=== PATIENT | male | born 1985 | race African-American/Black ===

== ENCOUNTER 2018-02-25 23:32 | Inpatient (IN) ==
[2018-02-25] MEDS ORDERED: HYDROmorphone 2 MG/1 ML VIAL IV STA (23:47)
[2018-02-25] MEDS ORDERED: ONDANSETRON 4 MG/2 ML VIAL IV STA (23:47)
[2018-02-25] MEDS ORDERED: SODIUM CHLORIDE 0.9% 1,000 ML IV STA (23:47)
[2018-02-25] MEDS ORDERED: PANTOPRAZOLE 40 MG VIAL IV STA (23:47)
[2018-02-26 00:15] LABS: Basophils % 0.2 % (0.0-0.8); Hematocrit 46.4 VOL% (42.0-52.0); Hemoglobin 15.8 GM/DL (14.0-18.0); Immature Granulocytes % 0.3 %; Immature Granulocytes Absolute 0.04 #; Lymphocytes # 1.3 10*3/uL (1.4-4.0); Lymphocytes % 10.6 % (21.2-54.2); Mean Corpuscular HGB Conc 34.1 GM/DL (32-36); Mean Corpuscular Hemoglobin 32 PG (27-34); Mean Corpuscular Volume 95.3 FL (87-102); Mean Platelet Volume 9.4 FL (9.6-12.0); Monocytes # 0.9 10*3/uL (0.11-0.8); Monocytes % 7.5 % (1.7-12.7); Neutrophils # 9.8 10*3/uL (1.4-7.4); Neutrophils % 81.4 % (38.7-73.9); Platelet Count 249 T/CUMM (130-400); Red Blood Count 4.87 MC/CUMM (3.8-5.5); Red Cell Distribution Width 12.7 % (9.3-17.3); White Blood Count 12.1 T/CUMM (4-12)
[2018-02-26 00:45] LABS: Albumin 4.6 G/DL (3.4-5.0); Bilirubin,Total 1.5 MG/DL (0.2-1.0); Calcium 9.3 MG/DL (8.5-10.1); Osmolality,Calculated 272.8 MOS/KG (273-304); Potassium 3.4 MMOL/L (3.5-5.1)
[2018-02-26 00:53] LABS: Apearance,Urine CLEAR (Clear); Bilirubin,Urine Negative (Negative); Blood, Urine Negative (Negative); Glucose,Urine (UA) Negative (Negative); Ketones,Urine 5 mg/dL (Negative); Mucus,Urine Occasional /LPF (Occasional); Nitrite,Urine Negative (Negative); Protein,Urine 30 MG/DL; RBC,Urine 15 /HPF (0-4); Urine Color Yellow (Yellow); Urine Specific Gravity > 1.060 (1.001-1.035); Urine Urobilinogen < 2.0 EU/DL (0.2-1.0); WBC,Urine 3 /HPF (0-6)
[2018-02-26] MEDS ORDERED: NICOTINE 21 MG/24 HR PATCH TRANSDERM PRN (01:03)
[2018-02-26] MEDS ORDERED: diphenhydrAMINE CAP 25 MG CAPSULE PO PRN (01:03)
[2018-02-26] MEDS ORDERED: MORPHINE 4 MG/1 ML VIAL IV PRN ×2 (01:03→02:19)
[2018-02-26] MEDS ORDERED: PROMETHAZINE 25 MG/1 ML VIAL IM PRN (01:03)
[2018-02-26] MEDS ORDERED: LACTULOSE 20 GM/30 ML UDCUP PO PRN (01:03)
[2018-02-26] MEDS ORDERED: ONDANSETRON 4 MG/2 ML VIAL IV PRN (01:03)
[2018-02-26 02:01] LABS: Risk Ratio 1.9; VLDL CHOLESTEROL 15.4 MG/DL
[2018-02-26 02:09] LABS: Albumin 4.4 G/DL (3.4-5.0); Bilirubin,Direct 0.35 MG/DL (0.0-0.20); Bilirubin,Indirect 1.3 MG/DL (0.0-1.0); Bilirubin,Total 1.6 MG/DL (0.2-1.0); Total Protein 9.2 G/DL (6.4-8.3)
[2018-02-26 02:15] LABS: Barbiturates Screen,Urine Negative (Negative); Benzodiazepines Screen,Urine Negative (Negative); Cannabinoid Screen,Urine Negative (Negative); Opiate Screen,Urine Positive (Negative); Phencyclidine Screen,Urine Negative (Negative)
[2018-02-26] MEDS: SODIUM CHLORIDE 0.9% 1,000 ML IV SCH ×3 (03:08→16:21)
[2018-02-26] MEDS: PIPERACILLIN/TAZOBACTAM 3,375 MG in SODIUM CHLORIDE 0.9% 100 ML IV SCH ×3 (03:08→18:25)
[2018-02-26 03:33] LABS: Calcium 8.4 MG/DL (8.5-10.1); Osmolality,Calculated 275.5 MOS/KG (273-304); Potassium 3.4 MMOL/L (3.5-5.1)
[2018-02-26 03:34] LABS: Hepatitis A Ab IgM Quant 0.14 Index; Hepatitis A Ab IgM Result Negative (Negative); Hepatitis B Core IgM Quant 0.13 Index; Hepatitis B Core IgM Result Negative (Negative); Hepatitis B Surface Ag Quant < 0.10 Index; Hepatitis B Surface Ag Result Negative (Negative); Hepatitis C Virus Ab Quant 0.08 Index; Hepatitis C Virus Ab Result Negative (Negative)
[2018-02-26 04:24] LABS: HIV Antigen/Antibody Result Nonreactive (Nonreactive)
[2018-02-26] MEDS: HYDROmorphone 2 MG/1 ML VIAL IV PRN ×4 (08:22→20:55)
[2018-02-26] MEDS: PANTOPRAZOLE 40 MG VIAL IV SCH ×2 (08:24→20:58)
[2018-02-26] MEDS: LACTATED RINGERS 1,000 ML IV SCH (16:20)
[2018-02-27] MEDS: HYDROmorphone 2 MG/1 ML VIAL IV PRN ×4 (01:13→14:17)
[2018-02-27] MEDS: LACTATED RINGERS 1,000 ML IV SCH ×5 (01:50→18:08)
[2018-02-27] MEDS: PIPERACILLIN/TAZOBACTAM 3,375 MG in SODIUM CHLORIDE 0.9% 100 ML IV SCH ×2 (01:50→10:19)
[2018-02-27 04:39] LABS: Basophils # 0.1 10*3/uL (0.0-0.2); Basophils % 0.5 % (0.0-0.8); Eosinophils # 0.1 10*3/uL (0.0-0.87); Eosinophils % 1.1 % (0.00-10.9); Hematocrit 37.1 VOL% (42.0-52.0); Hemoglobin 12.5 GM/DL (14.0-18.0); Immature Granulocytes % 0.4 %; Immature Granulocytes Absolute 0.04 #; Lymphocytes # 2.4 10*3/uL (1.4-4.0); Lymphocytes % 22.1 % (21.2-54.2); Mean Corpuscular HGB Conc 33.7 GM/DL (32-36); Mean Corpuscular Hemoglobin 33 PG (27-34); Mean Corpuscular Volume 96.6 FL (87-102); Mean Platelet Volume 9.9 FL (9.6-12.0); Monocytes % 8.7 % (1.7-12.7); Neutrophils # 7.4 10*3/uL (1.4-7.4); Neutrophils % 67.2 % (38.7-73.9); Platelet Count 186 T/CUMM (130-400); Red Blood Count 3.84 MC/CUMM (3.8-5.5); Red Cell Distribution Width 12.8 % (9.3-17.3); White Blood Count 10.9 T/CUMM (4-12)
[2018-02-27 04:51] LABS: Calcium 8.3 MG/DL (8.5-10.1); Osmolality,Calculated 272.7 MOS/KG (273-304); Potassium 3.1 MMOL/L (3.5-5.1)
[2018-02-27] MEDS: PANTOPRAZOLE 40 MG VIAL IV SCH (08:46)
[2018-02-27] MEDS ORDERED: POTASSIUM CHLORIDE 20 MEQ TABLET PO PRN (09:49)
[2018-02-27] MEDS: amLODIPine 5 MG TABLET PO SCH (12:35)
[2018-02-27] MEDS: POTASSIUM CHLORIDE 20 MEQ TABLET PO SCH ×3 (12:35→21:20)
[2018-02-27] MEDS: oxyCODONE/ACETAMINOPHEN 5-325 MG TABLET PO PRN (19:25)
[2018-02-28] MEDS ORDERED: BISACODYL 5 MG TABLET PO ONE (00:20)
[2018-02-28] MEDS ORDERED: SIMETHICONE CHEW 125 MG TABLET PO SCH (00:30)
[2018-02-28] MEDS: oxyCODONE/ACETAMINOPHEN 5-325 MG TABLET PO PRN ×2 (00:38→21:41)
[2018-02-28] MEDS ORDERED: SIMETHICONE CHEW 125 MG TABLET PO ONE (01:00)
[2018-02-28 04:28] LABS: Basophils % 0.4 % (0.0-0.8); Eosinophils # 0.2 10*3/uL (0.0-0.87); Eosinophils % 2.3 % (0.00-10.9); Hemoglobin 12.5 GM/DL (14.0-18.0); Immature Granulocytes % 0.2 %; Immature Granulocytes Absolute 0.02 #; Lymphocytes # 2.3 10*3/uL (1.4-4.0); Lymphocytes % 22.9 % (21.2-54.2); Mean Corpuscular HGB Conc 33.8 GM/DL (32-36); Mean Corpuscular Hemoglobin 32 PG (27-34); Mean Corpuscular Volume 95.9 FL (87-102); Mean Platelet Volume 10.2 FL (9.6-12.0); Monocytes % 9.6 % (1.7-12.7); Neutrophils # 6.6 10*3/uL (1.4-7.4); Neutrophils % 64.6 % (38.7-73.9); Platelet Count 198 T/CUMM (130-400); Red Blood Count 3.86 MC/CUMM (3.8-5.5); Red Cell Distribution Width 12.1 % (9.3-17.3); White Blood Count 10.2 T/CUMM (4-12)
[2018-02-28 04:50] LABS: Calcium 8.4 MG/DL (8.5-10.1); Potassium 3.8 MMOL/L (3.5-5.1)
[2018-02-28] MEDS: LACTATED RINGERS 1,000 ML IV SCH ×2 (05:04→21:40)
[2018-02-28] MEDS: PANTOPRAZOLE 40 MG TABLET PO SCH (08:26)
[2018-02-28] MEDS: amLODIPine 5 MG TABLET PO SCH (08:26)
[2018-03-01] MEDS: oxyCODONE/ACETAMINOPHEN 5-325 MG TABLET PO PRN ×2 (03:09→09:06)
[2018-03-01 05:49] LABS: Basophils % 0.5 % (0.0-0.8); Eosinophils # 0.1 10*3/uL (0.0-0.87); Eosinophils % 1.6 % (0.00-10.9); Hematocrit 39.7 VOL% (42.0-52.0); Hemoglobin 13.8 GM/DL (14.0-18.0); Immature Granulocytes % 0.3 %; Immature Granulocytes Absolute 0.03 #; Lymphocytes # 1.9 10*3/uL (1.4-4.0); Lymphocytes % 22.2 % (21.2-54.2); Mean Corpuscular HGB Conc 34.8 GM/DL (32-36); Mean Corpuscular Hemoglobin 32 PG (27-34); Mean Corpuscular Volume 92.5 FL (87-102); Mean Platelet Volume 10.5 FL (9.6-12.0); Neutrophils # 5.5 10*3/uL (1.4-7.4); Neutrophils % 63.4 % (38.7-73.9); Platelet Count 235 T/CUMM (130-400); Red Blood Count 4.29 MC/CUMM (3.8-5.5); Red Cell Distribution Width 11.4 % (9.3-17.3); White Blood Count 8.6 T/CUMM (4-12)
[2018-03-01 06:15] LABS: Calcium 8.6 MG/DL (8.5-10.1); Osmolality,Calculated 262.4 MOS/KG (273-304)
[2018-03-01] MEDS ORDERED: POTASSIUM CHLORIDE 20 MEQ TABLET PO ONE (07:22)
[2018-03-01] MEDS: amLODIPine 5 MG TABLET PO SCH (08:42)
[2018-03-01] MEDS: PANTOPRAZOLE 40 MG TABLET PO SCH (08:42)
[2018-03-01 11:13] VITALS: BP 166/96
== END 2018-03-01 11:25 | disposition home or self-care (01) | DRG 440 ==
LOC: N.ED 23:32 → N.EDINP 02-26 01:03 → SUATTDRO 02-26 01:03 → N.3E 02-26 01:27
PROVIDERS: ADMIT Internal Medicine; ATTEND Internal Medicine Cardiovascular Disease

== ENCOUNTER 2018-04-01 13:56 | Inpatient (IN) ==
[2018-04-01] MEDS ORDERED: PANTOPRAZOLE 40 MG VIAL IV STA (14:17)
[2018-04-01] MEDS ORDERED: SODIUM CHLORIDE 0.9% 1,000 ML IV STA (14:17)
[2018-04-01] MEDS ORDERED: HYDROmorphone 2 MG/1 ML VIAL IV STA ×2 (14:17→16:30)
[2018-04-01] MEDS ORDERED: ONDANSETRON 4 MG/2 ML VIAL IV STA (14:17)
[2018-04-01 14:44] LABS: Basophils # 0.1 10*3/uL (0.0-0.2); Basophils % 0.5 % (0.0-0.8); Eosinophils # 0.2 10*3/uL (0.0-0.87); Eosinophils % 1.5 % (0.00-10.9); Hematocrit 44.2 VOL% (42.0-52.0); Hemoglobin 15.2 GM/DL (14.0-18.0); Immature Granulocytes % 0.3 %; Immature Granulocytes Absolute 0.04 #; Lymphocytes # 2.7 10*3/uL (1.4-4.0); Lymphocytes % 20.1 % (21.2-54.2); Mean Corpuscular HGB Conc 34.4 GM/DL (32-36); Mean Corpuscular Hemoglobin 32 PG (27-34); Mean Corpuscular Volume 92.7 FL (87-102); Mean Platelet Volume 9.1 FL (9.6-12.0); Monocytes # 0.8 10*3/uL (0.11-0.8); Monocytes % 5.8 % (1.7-12.7); Neutrophils # 9.6 10*3/uL (1.4-7.4); Neutrophils % 71.8 % (38.7-73.9); Platelet Count 261 T/CUMM (130-400); Red Blood Count 4.77 MC/CUMM (3.8-5.5); Red Cell Distribution Width 12.4 % (9.3-17.3); White Blood Count 13.4 T/CUMM (4-12)
[2018-04-01 15:08] LABS: Alanine Aminotransferase 24 U/L (16-61); Albumin 4.6 G/DL (3.4-5.0); Alkaline Phosphatase 76 U/L (45-117); Amylase 154 U/L (25-115); Aspartate Amino Transferase 34 U/L (0-37); Blood Urea Nitrogen 11 MG/DL (7-18); Calcium 9.6 MG/DL (8.5-10.1); Glucose 133 MG/DL (74-106); Osmolality,Calculated 277.5 MOS/KG (273-304); Sodium 139 MMOL/L (136-145); Total Protein 8.5 G/DL (6.4-8.3)
[2018-04-01] MEDS ORDERED: ACETAMINOPHEN 325 MG TABLET PO PRN (15:27)
[2018-04-01] MEDS ORDERED: PROMETHAZINE 25 MG/1 ML VIAL IM PRN (15:27)
[2018-04-01] MEDS ORDERED: ONDANSETRON 4 MG/2 ML VIAL IV PRN (15:27)
[2018-04-01] MEDS ORDERED: SODIUM CHLORIDE 0.9% 2,000 ML IV STA (15:31)
[2018-04-01] MEDS ORDERED: DICYCLOMINE 10 MG CAPSULE PO PRN (15:34)
[2018-04-01] MEDS ORDERED: LORazepam 2 MG/1 ML VIAL IV PRN (15:34)
[2018-04-01] MEDS ORDERED: METHOCARBAMOL 500 MG TABLET PO PRN (15:34)
[2018-04-01 17:22] LABS: Apearance,Urine CLEAR (Clear); Bilirubin,Urine Negative (Negative); Blood, Urine Negative (Negative); Glucose,Urine (UA) Negative (Negative); Ketones,Urine Negative (Negative); Nitrite,Urine Negative (Negative); Protein,Urine Negative; RBC,Urine 1 /HPF (0-4); Urine Color Yellow (Yellow); Urine Specific Gravity > 1.060 (1.001-1.035); Urine Urobilinogen < 2.0 EU/DL (0.2-1.0); WBC,Urine 1 /HPF (0-6)
[2018-04-01 17:28] LABS: Barbiturates Screen,Urine Negative (Negative); Benzodiazepines Screen,Urine Negative (Negative); Cannabinoid Screen,Urine Negative (Negative); Opiate Screen,Urine Positive (Negative); Phencyclidine Screen,Urine Negative (Negative)
[2018-04-01] MEDS ORDERED: NICOTINE 14 MG/24 HR PATCH TRANSDERM PRN (17:55)
[2018-04-01] MEDS: chlordiazePOXIDE 25 MG CAPSULE PO SCH ×2 (18:05→21:20)
[2018-04-01] MEDS: GEMFIBROZIL 600 MG TABLET PO SCH (18:16)
[2018-04-01] MEDS: HYDROmorphone 2 MG/1 ML VIAL IV PRN ×2 (18:17→21:19)
[2018-04-01] MEDS: LACTATED RINGERS 1,000 ML IV SCH (18:18)
[2018-04-01] MEDS ORDERED: THIAMINE INJ 100 MG, FOLIC ACID INJ 1 MG, MULTIVITAMIN INJ 10 ML in SODIUM CHLORIDE 0.9... IV ONE (18:30)
[2018-04-02] MEDS: HYDROmorphone 2 MG/1 ML VIAL IV PRN ×7 (01:04→21:01)
[2018-04-02 02:45] LABS: Basophils % 0.2 % (0.0-0.8); Eosinophils # 0.1 10*3/uL (0.0-0.87); Eosinophils % 0.9 % (0.00-10.9); Hematocrit 37.5 VOL% (42.0-52.0); Hemoglobin 12.6 GM/DL (14.0-18.0); Immature Granulocytes % 0.3 %; Immature Granulocytes Absolute 0.04 #; Lymphocytes # 1.9 10*3/uL (1.4-4.0); Lymphocytes % 14.8 % (21.2-54.2); Mean Corpuscular HGB Conc 33.6 GM/DL (32-36); Mean Corpuscular Hemoglobin 32 PG (27-34); Mean Corpuscular Volume 94.5 FL (87-102); Mean Platelet Volume 9.7 FL (9.6-12.0); Monocytes % 7.8 % (1.7-12.7); Neutrophils # 9.7 10*3/uL (1.4-7.4); Platelet Count 226 T/CUMM (130-400); Red Blood Count 3.97 MC/CUMM (3.8-5.5); Red Cell Distribution Width 12.3 % (9.3-17.3); White Blood Count 12.7 T/CUMM (4-12)
[2018-04-02 03:12] LABS: Albumin 3.6 G/DL (3.4-5.0); Bilirubin,Total 2.1 MG/DL (0.2-1.0); Calcium 8.2 MG/DL (8.5-10.1); Osmolality,Calculated 275.4 MOS/KG (273-304); Potassium 3.4 MMOL/L (3.5-5.1); Risk Ratio 1.88; Thyroid Stimulating Hormone 0.712 uIU/ml (0.358-3.74); Total Protein 6.9 G/DL (6.4-8.3); VLDL CHOLESTEROL 16.8 MG/DL
[2018-04-02] MEDS: chlordiazePOXIDE 25 MG CAPSULE PO SCH ×4 (04:02→23:41)
[2018-04-02] MEDS: LACTATED RINGERS 1,000 ML IV SCH ×5 (04:22→22:33)
[2018-04-02] MEDS ORDERED: POTASSIUM CHLORIDE 20 MEQ TABLET PO ONE (07:52)
[2018-04-02] MEDS: amLODIPine 5 MG TABLET PO SCH (08:07)
[2018-04-02] MEDS: GEMFIBROZIL 600 MG TABLET PO SCH ×2 (08:07→15:57)
[2018-04-02] MEDS: PANTOPRAZOLE 40 MG VIAL IV SCH (08:12)
[2018-04-02] MEDS: PIPERACILLIN/TAZOBACTAM 3,375 MG in SODIUM CHLORIDE 0.9% 100 ML IV SCH ×2 (10:54→17:57)
[2018-04-03] MEDS: HYDROmorphone 2 MG/1 ML VIAL IV PRN ×3 (01:29→07:55)
[2018-04-03] MEDS: PIPERACILLIN/TAZOBACTAM 3,375 MG in SODIUM CHLORIDE 0.9% 100 ML IV SCH ×2 (01:31→10:40)
[2018-04-03 05:12] LABS: Basophils # 0.1 10*3/uL (0.0-0.2); Basophils % 0.5 % (0.0-0.8); Eosinophils # 0.6 10*3/uL (0.0-0.87); Hemoglobin 12.5 GM/DL (14.0-18.0); Immature Granulocytes % 0.3 %; Immature Granulocytes Absolute 0.03 #; Lymphocytes # 2.9 10*3/uL (1.4-4.0); Lymphocytes % 31.6 % (21.2-54.2); Mean Corpuscular HGB Conc 33.8 GM/DL (32-36); Mean Corpuscular Hemoglobin 32 PG (27-34); Mean Corpuscular Volume 94.1 FL (87-102); Mean Platelet Volume 9.7 FL (9.6-12.0); Monocytes # 0.7 10*3/uL (0.11-0.8); Monocytes % 8.1 % (1.7-12.7); Neutrophils # 4.9 10*3/uL (1.4-7.4); Neutrophils % 53.5 % (38.7-73.9); Platelet Count 210 T/CUMM (130-400); Red Blood Count 3.93 MC/CUMM (3.8-5.5); White Blood Count 9.1 T/CUMM (4-12)
[2018-04-03 05:29] LABS: Albumin 3.5 G/DL (3.4-5.0); Calcium 8.6 MG/DL (8.5-10.1); Osmolality,Calculated 269.8 MOS/KG (273-304); Potassium 3.2 MMOL/L (3.5-5.1); Total Protein 7.3 G/DL (6.4-8.3)
[2018-04-03 06:03] LABS: Barbiturates Screen,Urine Negative (Negative); Benzodiazepines Screen,Urine Positive (Negative); Cannabinoid Screen,Urine Negative (Negative); Opiate Screen,Urine Positive (Negative); Phencyclidine Screen,Urine Negative (Negative)
[2018-04-03] MEDS: chlordiazePOXIDE 25 MG CAPSULE PO SCH ×2 (07:57→17:50)
[2018-04-03] MEDS: LACTATED RINGERS 1,000 ML IV SCH ×2 (07:58→12:43)
[2018-04-03] MEDS: POTASSIUM CHLORIDE 20 MEQ TABLET PO SCH ×2 (07:58→12:56)
[2018-04-03] MEDS: GEMFIBROZIL 600 MG TABLET PO SCH (07:58)
[2018-04-03] MEDS ORDERED: THIAMINE 100 MG TABLET PO SCH (09:00)
[2018-04-03] MEDS: amLODIPine 5 MG TABLET PO SCH (10:43)
[2018-04-03] MEDS ORDERED: HYDROmorphone 2 MG/1 ML VIAL IV PRN (11:12)
[2018-04-03 12:41] VITALS: BP 140/87
[2018-04-03] MEDS: PANTOPRAZOLE 40 MG VIAL IV SCH (12:44)
[2018-04-03] MEDS ORDERED: POTASSIUM CHLORIDE 20 MEQ TABLET PO SCH (13:00)
== END 2018-04-03 16:05 | disposition home or self-care (01) | DRG 439 ==
LOC: N.ED 13:56 → N.EDINP 15:27 → N.4E 17:54
PROVIDERS: ADMIT Internal Medicine; ATTEND Internal Medicine